=== PATIENT | female | born 1995 | race Caucasian/White ===

== ENCOUNTER 2019-11-04 04:37 | Emergency (ER) | payer SELFPAY ==
[2019-11-04] VITALS (23 sets, daily range): BP systolic 110–123; BP diastolic 64–82; PULSE 78–99; RESP 16–18; TEMP 36.3–36.8; O2SAT 94–100; BMI 30.7
--- NOTE | 2019-11-04 05:02 | ED_ITS ---
HPI - General Adult General: Chief complaint: General Medical Stated complaint: ETOH Time Seen by Provider: 11/04/19 04:46 History of Present Illness: HPI narrative: 24-year-old female presents intoxicated on alcohol. Evidently an ambulance was called because she had gone outside after a constitution party and gotten lost. She does not complain of pain. She does not believe she has been assaulted in any way. Associated symptoms: Reports vomiting; Deny chest pain, dyspnea, fevers/chills, headache(s), rash or palpitations Treatments prior to arrival: none Review of Systems Const: Denies: fever or chills Eyes: Reports: blurry vision; Denies: change in vision ENMT: Denies: painful swallowing, swelling of lips/tongue, bleeding gums, dental pain or nose bleeds Card: Denies: chest pain, palpitations, irregular heart rhythm or swelling of feet/ankles Resp: Denies: shortness of breath, productive cough, non-productive cough or wheezing GI: Reports: vomiting : Denies: painful urination or blood in urine Musc: Denies: neck pain, back pain, redness or joint warmth Skin/Breast: Denies: rash, itching or redness Neuro: Denies: headache Psych: Reports: anxiety; Denies: visual hallucinations or auditory hallucinations PFSH ED PFSH: Statuses (acute, chronic, etc) shown below reflect problem list status as previously entered and may not be historically accurate Social History Smoking and tobacco status: never smoked Physical Exam Const: GENERAL APPEARANCE: well developed ORIENTATION/CONSCIOUSNESS: Yes oriented to person and Yes oriented to place; not oriented to time HENMT: COMMON NORMALS: normocephalic, external ears normal and external nose normal HEAD & SCALP: normocephalic; no scalp tenderness FACE & SINUS: normal facial exam NOSE: external nose normal and no nasal discharge EXTERNAL EAR: Yes external ears normal MOUTH: tongue normal THROAT: posterior oropharynx normal; no peritonsillar mass Eye: COMMON NORMALS: PERRL, EOMs intact bilaterally and conjunctivae normal EYELID: eyelids normal CONJUNCTIVA: Yes conjunctivae normal PUPIL: Yes PERRL Neck/C-Spine: COMMON NORMALS: full ROM GENERAL: No tracheal deviation CERVICAL SPINE: Yes normal cervical lordosis and No cervical spine tenderness Chest: COMMONS NORMALS: inspection of chest normal CHEST: No tenderness Resp: COMMON NORMALS: clear to auscultation bilaterally EFFORT & INSPECTION: No tachypneic, No respiratory distress, No retractions, No uses accessory muscles and No tracheal deviation AUSCULTATION: clear to auscultation bilaterally, no rhonchi, no wheezes and lung sounds not diminished Cardio: COMMON NORMALS: regular rate and regular rhythm RATE: regular rate RHYTHM: regular rhythm HEART SOUNDS: no murmurs PERIPHERAL PULSES: radial pulses present GI: INSPECTION: No abdominal distension AUSCULTATION: No hyperactive bowel sounds and No hypoactive bowel sounds PALPATION: No guarding and No rigid PERCUSSION: no dullness to percussion and no tympanic to percussion : COMMON NORMALS: Yes no CVA tenderness BLADDER/KIDNEY EXAM: Yes no CVA tenderness Back/Pelvis: COMMON NORMALS: no CVA tenderness Neuro: SENSORIUM/ORIENTATION: Yes oriented to person, Yes oriented to place and No oriented to time Psych: COMMON NORMALS: negative for mental status grossly normal Skin: COMMON NORMALS: no rashes or lesions noted GENERAL SKIN EXAM: no rashes or lesions noted Course ED course: Awake and alert. Obviously intoxicated. Other laboratory is benign. She denies assault. Her mother is coming to get her. Vital Signs: Vital signs: Vital Signs Temperature 98.2 F 11/04/19 07:20 Pulse Rate 78 11/04/19 07:20 Respiratory Rate 16 11/04/19 07:20 Blood Pressure 110/64 11/04/19 07:20 Pulse Oximetry 98 11/04/19 07:20 MDM - General Adult Lab Data: Labs: Lab Results 11/04/19 11/04/19 11/04/19 Range/Units 05:32 05:32 05:32 WBC 9.1 (4.0-10.0) 10^3/ uL RBC 4.27 (4.1-5.3) 10^6/u L Hgb 12.2 (11.5-15.3) g/dL Hct 36.3 L (37.0-47.0) % MCV 85.0 (81-99) fL MCH 28.6 (28.0-34.0) pg MCHC 33.6 (30.0-36.0) g/dL RDW 12.1 (12.1-15.1) % Plt Count 274 (130-400) 10^3/c mm MPV 10.3 (7.4-10.4) fL Neut % (Auto) 71.4 % Lymph % (Auto) 21.4 % Coffee % (Auto) 5.9 % Eos % (Auto) 0.5 % Baso % (Auto) 0.4 % Neut # (Auto) 6.5 (1.8-7.7) 10^3/u L Lymph # (Auto) 2.0 (0.8-4.8) 10^3/u L Coffee # (Auto) 0.5 (0.2-0.9) 10^3/u L Eos # (Auto) 0.1 (0.0-0.8) 10^3/u L Baso # (Auto) 0.0 (0.0-0.1) 10^3/u L Nucleated RBC % (a uto) 0 % Nucleated RBCs # 0.0 /100WBC PT 14.00 H (10.5-13.3) SECO NDS INR 1.05 (0.8-1.2) Sodium 139 (136-145) mmol/L Potassium 3.7 (3.5-5.1) mmol/L Chloride 103 (98-107) mmol/L Carbon Dioxide 22 (22-29) mmol/L Anion Gap 17.7 (5-19) BUN 10 (6-20) mg/dL Creatinine 0.7 (0.5-0.9) mg/dL GFR Calculation 103.7 (90-130) mL/min Glucose 111 H (74-109) mg/dL Calcium 8.9 (8.5-10.5) mg/dL Total Bilirubin 0.2 (0.15-1.2) mg/dL AST 18 (0-32) U/L ALT 10 (0-33) U/L Alkaline Phosphata se 55 (35-105) IU/L Total Protein 7.6 (6.6-8.7) g/dL Albumin 4.2 (3.5-5.2) g/dL Globulin 3.4 (1.3-4.6) g/dL Salicylates < 0.3 L (3-10) mg/dL Acetaminophen < 5.0 L (10-30) ug/mL Ethyl Alcohol 261 H (0-10) mg/dL Discharge Plan Discharge Patient Disposition: Home, Self-Care Clinical Impression: Alcohol intoxication Qualifiers: Complication of substance-induced condition: uncomplicated Qualified Code(s): F10.920 - Alcohol use, unspecified with intoxication, uncomplicated Condition: Stable Prescriptions: No Action No Known Home Medications RF: 0 Discharge Orders: Discharge Order (Routine); Ordered 11/04/19 Ordered By: Juan Manuel Pina Referrals: Alber Echols MD [Family Provider] - Discharge Diet: Advance as tolerated Discharge Activity: Resume usual activity Patient Instructions: Alcohol Intoxication (ED) Discharge Date/Time: 11/04/19 07:21 Coding Level of Care Code ED Assistant Child Care Teacher for Dawna Crews
[2019-11-04] MEDS: sodium chloride 0.9% 1,000 ML 999 ML IV (05:20)
[2019-11-04 05:48] LABS: Basophils % 0.4 %; Eosinophils # 0.1 10^3/uL (0.0-0.8); Eosinophils % 0.5 %; Hematocrit 36.3 % (37.0-47.0); Hemoglobin 12.2 g/dL (11.5-15.3); Lymphocytes % 21.4 %; Mean Corpuscular HGB Conc 33.6 g/dL (30.0-36.0); Mean Corpuscular Hemoglobin 28.6 pg (28.0-34.0); Mean Platelet Volume 10.3 fL (7.4-10.4); Monocytes # 0.5 10^3/uL (0.2-0.9); Monocytes % 5.9 %; Neutrophils # 6.5 10^3/uL (1.8-7.7); Neutrophils % 71.4 %; Nucleated Red Blood Cells % 0 %; Platelet Count 274 10^3/cmm (130-400); Red Blood Count 4.27 10^6/uL (4.1-5.3); Red Cell Distribution Width 12.1 % (12.1-15.1); White Blood Count 9.1 10^3/uL (4.0-10.0)
[2019-11-04 06:10] LABS: Alanine Aminotransferase 10 U/L (0-33); Albumin Level 4.2 g/dL (3.5-5.2); Alcohol Level 261 mg/dL (0-10); Alkaline Phosphatase 55 IU/L (35-105); Anion Gap 17.7 (5-19); Aspartate Amino Transferase 18 U/L (0-32); Blood Urea Nitrogen 10 mg/dL (6-20); Calcium 8.9 mg/dL (8.5-10.5); Carbon Dioxide 22 mmol/L (22-29); Chloride 103 mmol/L (98-107); Globulin 3.4 g/dL (1.3-4.6); Glomerular Filtration Rate 103.7 mL/min (90-130); Glucose 111 mg/dL (74-109); Potassium 3.7 mmol/L (3.5-5.1); Sodium 139 mmol/L (136-145); Total Bilirubin 0.2 mg/dL (0.15-1.2); Total Protein 7.6 g/dL (6.6-8.7)
[2019-11-04 06:12] LABS: Acetaminophen < 5.0 ug/mL (10-30); Salicylate < 0.3 mg/dL (3-10)
[2019-11-04 06:14] LABS: INR 1.05 (0.8-1.2)
--- NOTE | 2019-11-04 06:20 | PC.NURSE ---
pt asleep does not arouse when calling name or with tactile stim. resp e/u NAD noted. dc orders noted. unable to complete dc teaching at this time. attempted to contact pt's next of kin (mother) without success
== END 2019-11-04 07:21 | disposition home or self-care (01) ==
PROVIDERS: Emergency Provider Emergency Medicine; Family Provider Family Medicine
DX: F10.120 Alcohol abuse with intoxication, uncomplicated (principal); Y90.8 Blood alcohol level of 240 mg/100 ml or more
CPT/HCPCS: 36415; 80053; 80307; 85025; 85610; 96360; 96361; 96374; 99283; J3411; J7030

== ENCOUNTER → 2022-01-27 12:30 | Outpatient (BNVA) | payer MEDICAID, SELFPAY | PROVIDERS: Family Provider Family Medicine; Visit Provider Obstetrics & Gynecology | DX: Z12.4 Encounter for screening for malignant neoplasm of cervix (principal); O44.40 Low lying placenta NOS or without hemorrhage, unspecified trimester; O99.330 Smoking (tobacco) complicating pregnancy, unspecified trimester | CPT/HCPCS: 80307; 81000; 85027; 86592; 86762; 86803; 86850; 86900; 87086; 87340; 87491; 87591; 87806; 88175 ==

== ENCOUNTER → 2022-02-04 13:01 | Outpatient (BNVA) | payer MEDICAID, SELFPAY | PROVIDERS: Family Provider Family Medicine; Visit Provider Obstetrics & Gynecology | DX: Z34.92 Encounter for supervision of normal pregnancy, unspecified, second trimester (principal); Z3A.21 21 weeks gestation of pregnancy | CPT/HCPCS: 76805 ==

== ENCOUNTER → 2022-03-30 11:16 | Outpatient (BNVA) | payer MEDICAID, SELFPAY | PROVIDERS: Family Provider Family Medicine; Visit Provider Obstetrics & Gynecology | DX: Z34.90 Encounter for supervision of normal pregnancy, unspecified, unspecified trimester (principal) | CPT/HCPCS: 80307; 81000; 82950; 85027 ==

== ENCOUNTER → 2022-04-13 11:34 | Outpatient (BNVA) | payer MEDICAID, SELFPAY | PROVIDERS: Family Provider Family Medicine; Visit Provider Obstetrics & Gynecology | DX: O99.330 Smoking (tobacco) complicating pregnancy, unspecified trimester (principal); O99.320 Drug use complicating pregnancy, unspecified trimester | CPT/HCPCS: 81000 ==

== ENCOUNTER → 2022-04-20 08:54 | Outpatient (BNVA) | payer MEDICAID, SELFPAY | PROVIDERS: Family Provider Family Medicine; Visit Provider Obstetrics & Gynecology | DX: Z34.80 Encounter for supervision of other normal pregnancy, unspecified trimester (principal) | CPT/HCPCS: 81000 ==

== ENCOUNTER → 2022-05-15 10:25 | Outpatient (BNVA) | payer MEDICAID, SELFPAY | PROVIDERS: Family Provider Family Medicine; Visit Provider Obstetrics & Gynecology | DX: O99.320 Drug use complicating pregnancy, unspecified trimester (principal) | CPT/HCPCS: 80307; 84315; 87081 ==

== ENCOUNTER → 2022-06-15 13:35 | Outpatient (BNVA) | payer MEDICAID, SELFPAY | PROVIDERS: Family Provider Family Medicine; Visit Provider Obstetrics & Gynecology | DX: O48.0 Post-term pregnancy (principal); O99.320 Drug use complicating pregnancy, unspecified trimester; O99.330 Smoking (tobacco) complicating pregnancy, unspecified trimester | CPT/HCPCS: 76819; 84315 ==

== ENCOUNTER 2022-06-23 18:13 | Inpatient (IN) | payer MEDICAID, SELFPAY ==
[2022-06-23] VITALS (9 sets, daily range): BP systolic 112–133; BP diastolic 64–81; PULSE 70–113; RESP 17–18; TEMP 36.3; BMI 35.1
--- NOTE | 2022-06-23 17:36 | PM.OPHPUD ---
Labor & Delivery H&P Update Date of Procedure: June 23, 2022 Date H&P Performed: 06/23/22 H&P update information: I have reviewed H&P completed within last 30 days, I have examined patient prior to procedure and No changes to prior documentation Admission Diagnosis:
[2022-06-23] MEDS: dextrose 5%-lactated ringers 1,000 ML 999 ML IV (18:01)
[2022-06-23 18:22] LABS: Basophils % 0.2 %; Eosinophils % 0.1 %; Hematocrit 35.7 % (37.0-47.0); Hemoglobin 11.9 g/dL (11.5-15.3); Lymphocytes # 2.5 10^3/uL (0.8-4.8); Lymphocytes % 13.7 %; Mean Corpuscular HGB Conc 33.3 g/dL (30.0-36.0); Mean Corpuscular Hemoglobin 27.7 pg (28.0-34.0); Mean Corpuscular Volume 83.2 fl (81-99); Mean Platelet Volume 12.2 fL (7.4-10.4); Monocytes # 1.1 10^3/uL (0.2-0.9); Monocytes % 5.7 %; Neutrophils # 14.56 10^3/uL (1.8-7.7); Nucleated Red Blood Cells % 0 %; Platelet Count 256 10^3/cmm (130-400); Red Blood Count 4.29 10^6/uL (4.1-5.3); White Blood Count 18.4 10^3/uL (4.0-10.0)
[2022-06-23 18:32] LABS: Amphetamines Screen Urine Negative (Negative); Barbiturates Screen Urine Negative (Negative); Benzodiazepines Screen Urine Negative (Negative); Cocaine Screen Urine Negative (Negative); Opiate Screen Urine Negative (Negative); PCP Screen Urine Negative (Negative); THC Screen Urine Negative (Negative)
[2022-06-23] MEDS: miSOPROStol 100 mcg tablet 25 MCG VAGINAL ×2 (18:44→23:42)
[2022-06-23] MEDS: lactated ringers 1,000 ML 999 ML IV (23:09)
[2022-06-24] VITALS (113 sets, daily range): BP systolic 100–169; BP diastolic 56–95; PULSE 65–126; RESP 14–18; TEMP 36.5–37.1; O2SAT 98–100
[2022-06-24] MEDS: miSOPROStol 100 mcg tablet 25 MCG VAGINAL ×2 (04:02→11:12)
[2022-06-24] MEDS: fentaNYL 50 mcg/mL INJ 2mL IVP ×2 (12:42→13:50)
--- NOTE | 2022-06-24 12:47 | ANES.PREANE2 ---
Pre-Anesthetic Assessment Height/Weight: Height 1.65 m Weight 95.708 kg Temp Pulse Resp BP O2 Del Method 97.7 F 92 14 127/77 06/24/22 08:57 06/24/22 12:24 06/24/22 12:42 06/24/22 12:24 06/23/22 18:19 EPidural Familial anesthetic complications: None Social No alcohol and No tobacco Exam alert, oriented x 3, clear to auscultation bilaterally and regular rate & rhythm Airway Mallampati: Class II Dentition: full Anesthetic Plan ASA status: 2 Anesthesia: Regional (specify below) (epidural) Other Pertinent Information Patient is undecided if she would like to have labor epidural Medications/Allergies Home Medications Medication Instructions Recorded Confirmed Last Taken Type prenat.vits,jennie,[id number] 1 tab PO DAILY 01/27/22 06/23/22 06/22/22 21:00 History famotidine 10 mg tablet (Pepcid AC) 10 mg PO DAILY PRN Pain, Mild 02/24/22 06/23/22 06/22/22 21:00 History acetaminophen 650 mg 650 mg PO Q8H PRN Pain, Mild 04/13/22 06/23/22 06/22/22 21:00 History tablet,extended release (Tylenol Arthritis Pain) Allergies Allergy/AdvReac Type Severity Reaction Status Date / Time Penicillins Allergy ALGY-Hives---can Verified 06/23/22 15:55 take Keflex Current Medications Generic Name Dose Route Start Last Admin Trade Name Freq PRN Reason Stop Dose Admin Fentanyl 25 - 100 mcg 06/23/22 17:21 06/24/22 12:42 Fentanyl 50 Mcg/Ml Inj 2ml IVP 25 mcg Q1H PRN Administration SEVERE PAIN Lactated Ringer's 1,000 mls @ 999 mls/hr 06/23/22 17:21 06/24/22 00:10 Lactated Ringers IV Infused .Q1H1M PRN Infusion Per L&D Rescitation Protocol Dextrose/Lactated Ringer's 1,000 mls @ 125 mls/hr 06/23/22 17:30 06/23/22 22:39 Dextrose 5%-Lactated Ringers IV Infused .Q8H MARK Infusion PFSH Anesthesia Medical History No pertinent past medical history Denies diabetes, asthma, hypertension, seizures, DVT/PE PCP: Dr. Echols Surgical History No history of previous surgery Family History Grandmother Breast cancer maternal, diagnosed at age 50 Thyroid condition maternal Grandfather Diabetes maternal Denies family history of Colon cancer Ovarian cancer Heart disease Hyperlipidemia Hypertension Uterine cancer Stroke Social History Smoking and tobacco status: former smoker Female Reproductive History : 1 Data Anesthesia : 06/23/22 17:35 Short CBC 06/23/22 Range/Units 17:35 WBC 18.4 H (4.0-10.0) 10^3/uL Hgb 11.9 (11.5-15.3) g/dL Hct 35.7 L (37.0-47.0) % MCV 83.2 (81-99) fl Plt Count 256 (130-400) 10^3/cmm Neut % (Auto) 79.0 % Neut # (Auto) 14.56 H (1.8-7.7) 10^3/uL Cardiac Studies: No Data to Display
[2022-06-24] MEDS: lactated ringers 1,000 ML 999 ML IV ×2 (12:56→14:22)
--- NOTE | 2022-06-24 15:00 | ANES.PROC ---
Anesthesia Procedures Procedure/Date: 06/24/22 Epidural: Time Out Performed: Yes Consents Signed: Procedure Consent Consent: requested by attending/covering physician, from patient and risks and benefits reviewed Lumbar Level: L3-L4 Epidural position: sitting Epidural procedure: sterile prep of area, 1% lidocaine to numb the area, 18 g needle, negative for paresthesia passed, neg for paresthesia, test dose given, 1.5% xylocaine 1:200k epi (2% lidocaine), 0.2% Ropivacaine bolus ml, placed PCEA, no systemic response, sterile dressing applied, L.U.D. no apparent complications and 0.2% Ropiavacaine @ mls/hr (13) Additional Comments: NATACHA at 6 cm, threaded to 12 cm
[2022-06-25] VITALS (31 sets, daily range): BP systolic 110–168; BP diastolic 56–89; PULSE 65–120; RESP 16–18; TEMP 36.1–36.9; O2SAT 97–99
[2022-06-25] MEDS: dextrose 5%-lactated ringers 1,000 ML 125 ML IV (01:09)
--- NOTE | 2022-06-25 03:47 | P.PCNOB_ITS ---
Delivery Note: Date of delivery: June 25, 2022 Pre-delivery diagnoses: Term Post-delivery diagnoses: Term delivered Procedure: Vacuum-assisted vaginal delivery Delivering Physician: Grey Parsons MD Estimated blood loss (mL): 300 Delivery: The nurse callled to notified me that while pushing heart rate dropped down to 60 bpm. The patient was noted to be complete and pushing, so was placed in the dorsal lithotomy position, prepped and draped in the usual sterile fashion for a vaginal delivery. Pt. Noted to have epidural anesthesia. Decision was made to apply the Kiwi vacuum @ 41+3 weeks for the above indications. The mother was informed and asked for her consent for application of the vaccum. A sanches had been used to insure the bladder was emptied. Adequate anesthesia was confirmed. The edges of the cup of the Kiwi vacuum were placed approximately 3cm from the anterior fontanelle, and just at the edge of the posterior fontanelle. The center of the cup was placed over the flexion point. The edges of the cup were swept with a finger to ensure that no maternal tissues were entrapped. After correct placement of the cup was confirmed, vacuum pressure was raised to 500-600 mmHg. Gentle traction along the axis of the pelvic curve down then up, was applied in concert with maternal pushing. 1 applications. 0 pop-offs. After head delivered, the vacuum pressure released and was taken off the baby's head. The patient delivered a viable 41 weeks 3 days female weighing 3655g with scores of and 1 at one and 8 at five minutes, respectively. The vertex was delivered vacuum assisted over intact perineum. The patient was asked to push and the head delivered in the OLIVERIO position, over an intact perineum. A nuchal cord was checked and none noted, and relieved around head as necessary. The anterior shoulder delivered easily and the posterior shoulder followed. The remainder of the was easily delivered and the oropharynx and nasopharynx was again bulb suctioned. The infant was noted to have spontaneous cry and spontaneous movement of all four extremities. The cord was clamped x 2 and cut and noted to have 2 arteries and one vein. Meconium was noted. The was passed immediately to the warmer where the scallop shucker and nursing personnel were in attendance with resuscitation. The placenta delivered intact manual extraction and the uterus was explored. Pitocin 20 units in 1L LR was initiated. Examination of the cervix, vagina and perineal areas were inspected for lacerations and did not reveal any lacerations. A vaginal pack was then placed. Examination of the perineum showed a second-degree laceration. The laceration was repaired with 3-0 Vicryl in the normal fashion in a running non locking fashion to reapproximate the laceration in layers. The vaginal pack was then removed. The patient tolerated this procedure well, and recovered in L&D with her in their LDR room. All sponge and needle counts were correct. History History History 1 Term Miscarriages/Ectopic Living Children 0 Coding Level of Care Code Acute Global Marketing Manager for [employer]
[2022-06-25] MEDS: prenatal vitamin Capsule 1 CAP PO (10:05)
[2022-06-25] MEDS: docusate sodium 100 mg Capsule PO ×2 (10:06→18:22)
[2022-06-25] MEDS: ibuprofen 800 mg tablet PO ×3 (10:06→20:06)
--- NOTE | 2022-06-25 13:25 | ANE.PACU2 ---
Inpatient post-anesthesia follow up: Airway intact: Yes Vital signs: Temperature 98.2 F Pulse Rate 101 Respiratory Rate 16 Blood Pressure 125/75 Pulse Oximetry 97 Oxygen Delivery Me thod Room Air Oxygen Flow Rate Fraction of Inspir ed Oxygen Hydration adequate: Yes Nausea and vomiting: No Pain level: 2 Mental status: Baseline Additional Comments: EMR review
[2022-06-25 16:30] LABS: Hemoglobin 10.1 g/dL (11.5-15.3); Mean Corpuscular HGB Conc 32.6 g/dL (30.0-36.0); Mean Corpuscular Hemoglobin 27.7 pg (28.0-34.0); Mean Corpuscular Volume 84.9 fl (81-99); Mean Platelet Volume 11.8 fL (7.4-10.4); Platelet Count 212 10^3/cmm (130-400); Red Blood Count 3.65 10^6/uL (4.1-5.3); Red Cell Distribution Width 14.3 % (12.1-15.1); White Blood Count 27.5 10^3/uL (4.0-10.0)
[2022-06-26 05:10] VITALS: BP 130/67; PULSE 86; RESP 16
[2022-06-26 09:58] VITALS: BP 100/67; PULSE 83; RESP 17; O2SAT 99
[2022-06-26] MEDS: ibuprofen 800 mg tablet PO ×2 (16:07→21:34)
[2022-06-26 16:11] VITALS: BP 132/86; PULSE 83; RESP 17; TEMP 37.1; O2SAT 99
[2022-06-26 22:00] VITALS: BP 135/79; PULSE 102; RESP 18; TEMP 36.8
[2022-06-27 05:00] VITALS: BP 132/79; PULSE 88; RESP 18; TEMP 36.8
[2022-06-27] MEDS: docusate sodium 100 mg Capsule PO (08:41)
[2022-06-27] MEDS: ibuprofen 800 mg tablet PO (08:41)
[2022-06-27] MEDS: prenatal vitamin Capsule 1 CAP PO (08:41)
[2022-06-27 11:18] VITALS: BP 125/80; PULSE 76; RESP 18; TEMP 36.8
--- NOTE | 2022-06-27 12:38 | PM.OBGYDC ---
Discharge Providers [employer] Date of Admission: 06/23/22 18:13 Date of Discharge: 06/27/22 Attending Provider at Admission: Grey Parsons MD Attending Provider at Discharge: Grey Parsons MD Primary [employer]: Grey Parsons MD Reason for Visit Reason for Visit: Induction Hospital Course Hospital Course Ms. Mcgregor is a 27 year old 1 para 0 with an LMP of 09/25/2021 (unsure) an EDC of 06/14/2022 redated by a 19 week ultrasound dates, placing her at 41 2/7weeks gestation. Admitted to labor and delivery due for elective induction. She progressed to have a spontaneous vaginal delivery. observation was uneventful. She is status post spontaneous vaginal delivery day 2. Tolerating diet well. Ambulating without difficulty. Information Peripartum Data: Infant Delivery Method: Vaginal Physical Exam Narrative: GA; alert and oriented x 3 HEENT: normal Breasts: engorged Nipples - skin intact Lungs; clear to auscultation Heart: regular rhythm, no murmurs. Abd: Appropriately tender. BS+. Uterine fundus below umbilicus. No Fundal Tenderness. Perineum: normal lochia. Extremities: no edema, no cyanosis, no tenderness. Urinary Catheter Management: Mcclain: Cath Placed During This Visit: yes, but has since been removed by the nurse Reason for Continuing Indwelling Catheter: Decision to DC Catheter Urinary Catheter Date of Insertion: 06/24/22 Urinary Catheter Time of Insertion: 15:00 Date Urinary Catheter Removed: 06/25/22 Time Urinary Catheter Discontinued: 01:24 History History History 1 Term Miscarriages/Ectopic Living Children 0 Discharge Data Studies Completed and Pending Laboratory Results WBC 27.5 10^3/uL (4.0-10.0) H 06/25/22 16:28 RBC 3.65 10^6/uL (4.1-5.3) L 06/25/22 16:28 Hgb 10.1 g/dL (11.5-15.3) L 06/25/22 16:28 Hct 31.0 % (37.0-47.0) L 06/25/22 16:28 MCV 84.9 fl (81-99) 06/25/22 16:28 MCH 27.7 pg (28.0-34.0) L 06/25/22 16:28 MCHC 32.6 g/dL (30.0-36.0) 06/25/22 16:28 RDW 14.3 % (12.1-15.1) 06/25/22 16:28 Plt Count 212 10^3/cmm (130-400) 06/25/22 16:28 MPV 11.8 fL (7.4-10.4) H 06/25/22 16:28 Neut % (Auto) 79.0 % 06/23/22 17:35 Lymph % (Auto) 13.7 % 06/23/22 17:35 Bond % (Auto) 5.7 % 06/23/22 17:35 Eos % (Auto) 0.1 % 06/23/22 17:35 Baso % (Auto) 0.2 % 06/23/22 17:35 Neut # (Auto) 14.56 10^3/uL (1.8-7.7) H 06/23/22 17:35 Lymph # (Auto) 2.5 10^3/uL (0.8-4.8) 06/23/22 17:35 Bond # (Auto) 1.1 10^3/uL (0.2-0.9) H 06/23/22 17:35 Eos # (Auto) 0.0 10^3/uL (0.0-0.8) 06/23/22 17:35 Baso # (Auto) 0.0 10^3/uL (0.0-0.1) 06/23/22 17:35 Nucleated RBC % (auto) 0 % 06/23/22 17:35 Nucleated RBCs # 0.0 /100WBC 06/23/22 17:35 Urine Opiates Screen Negative ng/mL (Negative) 06/23/22 17:25 Ur Barbiturates Screen Negative ng/mL (Negative) 06/23/22 17:25 Ur Phencyclidine Scrn Negative ng/mL (Negative) 06/23/22 17:25 Ur Amphetamines Screen Negative ng/mL (Negative) 06/23/22 17:25 U Benzodiazepines Scrn Negative ng/mL (Negative) 06/23/22 17:25 Urine Cocaine Screen Negative ng/mL (Negative) 06/23/22 17:25 U Marijuana (THC) Screen Negative ng/mL (Negative) 06/23/22 17:25 Vitals Last Vital Signs Temp 98.2 F 06/27/22 11:18 Pulse 76 06/27/22 11:18 Resp 18 06/27/22 11:18 BP 125/80 06/27/22 11:18 Pulse Ox 99 06/26/22 16:11 O2 Del Method 06/27/22 11:18 Discharge Plan Discharge Patient Disposition: Home Condition: Stable Prescriptions: New ferrous sulfate [Iron (ferrous sulfate)] 325 mg (65 mg iron) tablet 325 mg PO BID Qty: 60 0RF ibuprofen 800 mg tablet 800 mg PO TID PRN (Reason: pain) Qty: 60 0RF acetaminophen 325 mg capsule 325 mg PO Q4H PRN (Reason: fever or pain) Qty: 60 0RF docusate sodium [Colace] 100 mg capsule 100 mg PO BID Qty: 60 0RF Continued prenat.vits,jennie,[id number] Tablet 1 tab PO DAILY famotidine [Pepcid AC] 10 mg tablet 10 mg PO DAILY PRN (Reason: Pain, Mild) acetaminophen [Tylenol Arthritis Pain] 650 mg tablet extended release 650 mg PO Q8H PRN (Reason: Pain, Mild) Discharge Orders: Discharge Order (Routine); Ordered 06/27/22 Ordered By: Grey Parsons Referrals: Grey Parsons MD [Physician] - 08/07/22 9:30 am Discharge Diet: Advance as tolerated and Usual diet Discharge Activity: Limit activity as instructed Patient Instructions: Depression (DC), Bleeding (DC), Preeclampsia and Eclampsia After Delivery (GEN), Hemorrhage (DC), OB Discharge Report, OB Food/Drug Interaction Guide, OB Care at Home, Opioid Safety, OB Home Care, OB Vaginal Deliveries - [facility] Activity Restrictions/Additional Instructions: 1. Please call [facility] on next working day to make your appointment in 6 weeks. 2. Please stay home until you come back to the clinic on first post-operative check up. 3. Please follow instructions on your medications CAREFULLY. 4. If you have abdominal incision, do not cover it unless dressing is necessary because of drainage. OK to shower, but avoid bath. Leave steri-strips until they fall off. If they are still on one week after surgery, you may remove them. 5. If you had vaginal surgery or vaginal repair, Dr. Parsons may instruct you to take SITZ bath. 6. Yellow, blood tinged odorous vaginal discharge is usually normal after hysterectomy or vaginal surgeries. 7. No sexual intercourse, tampons, or douches until you are completely released from the post-operative care. 8. Avoid constipation by eating right and maybe using some Metamucil or Milk of Magnesia. 9. All prescription refills are given during the working hours. Please do no wait till it runs out. Call the clinic at [phone] before your medication runs out. The clinic will get in touch with your doctor to prescribe medications if necessary. 10. Please remain within 40 mile radius from our hospital because emergencies do happen now and then during the post-operative period. 11. If you have stairs at home, take one step at a time slowly and minimize the number of trips. It helps to stay in one floor for the next few days. No lifting except what you can lift by one hand until you are released from the post-operative care. 12. Driving is discouraged until you are well healed. It may be 3-4 weeks before you feel strong enough to drive. You should be able to turn and look through the rear window without pain and you should be able to push the brake pedal very hard without pain before you drive. No fast rules, but SAFETY should be your primary concern. DO NOT drive if you are on sedating medications such as narcotics. 13. Call the clinic (during working hours) to make urgent appointment or go to the Emergency room, if any of the following occurs: i. Vaginal bleeding becomes heavy, more than a period. ii. Incision becomes red and sore, or drains pus. iii. Your temperature is over 100.4 or you have chill. iv. IV site becomes red and swollen (a little ``knot?? is usually OK) v. Persistent nausea and vomiting vi. Persistent constipation or diarrhea vii. Rash or allergic reaction to medications. Discharge Attestations [employer] Time Spent in Discharge Care*: greater than 30 min Coding Level of Care Code Acute Framework Developer for Dawna Crews
[2022-06-27 13:30] VITALS: BP 129/75; PULSE 78; RESP 18; TEMP 36.8
[2022-06-27 14:00] VITALS: BP 129/75; PULSE 78; RESP 18; TEMP 36.8
== END 2022-06-27 13:50 | disposition home or self-care (01) | DRG 807 ==
LOC: OPOB 18:14 → OBGYN 18:14
PROVIDERS: Admitting Provider Obstetrics & Gynecology; Family Provider Family Medicine; Visit Provider Obstetrics & Gynecology
DX: O48.0 Post-term pregnancy (principal); Z37.0 Single live birth; Z3A.41 41 weeks gestation of pregnancy; O76 Abnormality in fetal heart rate and rhythm complicating labor and delivery; O77.0 Labor and delivery complicated by meconium in amniotic fluid; O70.1 Second degree perineal laceration during delivery
CPT/HCPCS: 36415; 51702; 59025; 59409; 80306; 81000; 85025; 85027; J2795; J3010

== ENCOUNTER → 2022-08-07 09:30 | Outpatient (BNVA) | payer MEDICAID, SELFPAY | PROVIDERS: Family Provider Family Medicine; Visit Provider Obstetrics & Gynecology | DX: Z30.9 Encounter for contraceptive management, unspecified (principal) | CPT/HCPCS: 81025 ==

== ENCOUNTER 2025-01-20 19:46 | Emergency (ER) | payer MEDICAID, SELFPAY ==
[2025-01-20 20:02] VITALS: BP 122/78; PULSE 107; RESP 16; TEMP 36.9; O2SAT 100
--- NOTE | 2025-01-20 20:19 | W.ED.GENADLT ---
HPI - General Adult General: Chief complaint: General Medical Stated complaint: Has puss coming out of brest,Fever Time Seen by Provider: 01/20/25 20:11 Source: patient Mode of arrival: ambulatory Limitations: no limitations History of Present Illness: 29-year-old female states she is currently breast-feeding she she has had pain low-grade fevers redness left breast with some pus. States she is continue to pump has had minimal milk output she does have pain traits 4 out of 10 has not been on antibiotics denies any worse improved factors Associated symptoms: Deny chest pain, dyspnea, nausea or vomiting Related Data Home Medications ?Medication ?Instructions ?Recorded ?Confirmed prenat.vits,jennie,[id number] 1 tab PO DAILY 01/27/22 08/07/22 Previous Rx's ?Medication ?Instructions ?Recorded norethindrone (contraceptive) 0.35 0.35 mg PO DAILY #84 tabs 08/07/22 mg tablet (Halle) cephalexin 500 mg capsule 500 mg PO QID 7 days #28 caps 01/20/25 Allergies Allergy/AdvReac Type Severity Reaction Status Date / Time Penicillins Allergy ALGY-Hives---can Verified 01/20/25 20:05 take Keflex Review of Systems Const: Reports: fever(s); Denies: chills, body aches or change in appetite ENMT: Denies: throat pain or dental pain Card: Denies: chest pain Resp: Denies: dyspnea GI: Denies: abdominal pain, nausea, vomiting or diarrhea Musc: Denies: neck pain or back pain Skin/Breast: Reports: erythema, breast pain and nipple discharge [facility] PFSH: Medical History No pertinent past medical history Denies diabetes, asthma, hypertension, seizures, DVT/PE PCP: Dr. Echols Surgical History No history of previous surgery Family History Grandmother Breast cancer maternal, diagnosed at age 50 Thyroid disease maternal Grandfather Diabetes maternal Denies family history of Colon cancer Ovarian cancer Heart disease Hyperlipidemia Hypertension Uterine cancer Stroke Physical Exam Const: COMMON NORMALS: no acute distress, patient oriented x3 and healthy appearing HENMT: COMMON NORMALS: normocephalic and atraumatic HEAD & SCALP: normocephalic and atraumatic Eye: COMMON NORMALS: conjunctivae normal CONJUNCTIVA: Yes conjunctivae normal Neck/C-Spine: COMMON NORMALS: full ROM and supple Chest: COMMONS NORMALS: normal inspection of the chest OTHER: Slight erythema left lateral breast with some tenderness no abscess palpated Resp: COMMON NORMALS: normal respiratory effort Cardio: COMMON NORMALS: regular rate, regular rhythm and No murmurs present (Cardio) RATE: regular rate RHYTHM: regular rhythm Extremity: COMMON NORMALS: normal to inspection and full ROM Neuro: COMMON NORMALS: patient oriented x3, moves all extremities and no focal motor deficits Psych: COMMON NORMALS: mental status grossly normal, Normal thought process present and cooperative THOUGHT PROCESS: Normal thought process present Skin: COMMON NORMALS: no rashes or lesions noted and no wounds GENERAL SKIN EXAM: no rashes or lesions noted Course Vital Signs: Vital signs: Vital Signs Temperature 98.4 F 01/20/25 20:02 Pulse Rate 107 H 01/20/25 20:02 Respiratory Rate 16 01/20/25 20:02 Blood Pressure 122/78 01/20/25 20:02 Pulse Oximetry 100 01/20/25 20:02 Oxygen Delivery Me thod Room Air 01/20/25 20:02 MDM - General Adult Medical Decision Making Patient presents here with likely mastitis she is continue to pump she is doing warm compresses we will start her on Keflex she is to follow-up with Dr. Bhatti return if worsening she understands agrees to plan no abscess palpated No radiology studies performed this visit Discharge Plan Discharge Patient Disposition: Home Clinical Impression: Mastitis Condition: Stable Prescriptions: New cephalexin 500 mg capsule 500 mg PO QID 7 Days Qty: 28 0RF No Action prenat.vits,jennie,[id number] Tablet 1 tab PO DAILY norethindrone (contraceptive) [Halle] 0.35 mg tablet 0.35 mg PO DAILY Qty: 84 0RF Discharge Orders: Discharge ED (Routine); Ordered 01/20/25 Ordered By: Neel Sun Referrals: Alber Echols MD [Family Provider] - Sam Bhatti MD [Physician] - 1-3 days Discharge Diet: Advance as tolerated Discharge Activity: Resume usual activity Patient Instructions: Mastitis (ED) Print Language: Setswana Coding Level of Care Code ED Conservation Technician for Dawna Crews
[2025-01-20 20:32] VITALS: BP 97/82; PULSE 89; RESP 16; O2SAT 97
[2025-01-20] MEDS: cephALEXin 500 mg Capsule PO (20:34)
--- NOTE | 2025-01-22 07:18 | DCPLANNER ---
messaged [facility] for er f/u
== END 2025-01-20 20:31 | disposition home or self-care (01) ==
PROVIDERS: Emergency Provider Emergency Medicine; Family Provider Family Medicine
DX: N61.0 Mastitis without abscess (principal)
CPT/HCPCS: 99283; J9999